=== PATIENT | female | born 1965 | race Caucasian/White ===

== ENCOUNTER → 2019-05-20 | Outpatient (CLI) | payer OTHER ==
--- NOTE | 2019-05-20 09:54 | US ---
EXAMINATION TYPE: US abdomen complete DATE OF EXAM: 05/20/2019 COMPARISON: NONE CLINICAL HISTORY: 53-year-old female R94.5 Abnormal results of liver function studies. TECHNIQUE: Multiple sonographic images of the abdomen are obtained. FINDINGS: EXAM MEASUREMENTS: Liver Length: 18.8 cm Gallbladder Wall: 0.2 cm CBD: 0.5 cm Spleen: 13.2 cm Right Kidney: 9.9 x 4.7 x 4.4 cm Left Kidney: 10.5 x 4.5 x 4.9 cm Pancreas: Obscured by bowel gas Liver: Heterogeneous appearance with increased echotexture and mildly enlarged . No focal lesion see n. Gallbladder: wnl Evidence for sonographic Mcknight's sign: No CBD: wnl Spleen: Borderline enlarged Right Kidney: No hydronephrosis. Left Kidney: No hydronephrosis. Upper IVC: wnl Abd Aorta: wnl IMPRESSION: 1. Hepatomegaly (18.8 cm) with moderate hepatic steatosis. 2. Borderline splenomegaly (13.2 cm). 3. No biliary ductal dilatation.
== END | disposition home or self-care (01) ==
LOC: RADUSWWP 07:04
PROVIDERS: ATTEND Family Medicine
DX: K76.0 Fatty (change of) liver, not elsewhere classified (principal); R16.2 Hepatomegaly with splenomegaly, not elsewhere classified
CPT/HCPCS: 76700

== ENCOUNTER → 2020-04-24 | Outpatient (CLI) | payer OTHER ==
--- NOTE | 2020-04-24 12:49 | US ---
EXAMINATION TYPE: US abdomen complete DATE OF EXAM: 04/24/2020 COMPARISON: 05/20/2019 CLINICAL HISTORY: R10.84 ABD PAIN. Pt states heart burn, bloating, pain EXAM MEASUREMENTS: Liver Length: 17.6 cm Gallbladder Wall: 0.2 cm CBD: 0.4 cm Spleen: 13.3 cm Right Kidney: 9.5 x 4.6 x 4.9 cm Left Kidney: 9.9 x 4.4 x 5.0 cm Pancreas: wnl, tail obscured by overlying bowel gas Liver: Heterogeneous, upper limits of normal for size as visualized on previous Gallbladder: Multiple probable polyps Evidence for sonographic Mcknight's sign: No CBD: wnl Spleen: Enlarged as visualized on previous Right Kidney: wnl, lower pole gassed out Left Kidney: wnl, lower pole gassed out Upper IVC: wnl Abd Aorta: wnl IMPRESSION: 1. Hepatosplenomegaly. 2. Apparent gallbladder polyps.
== END | disposition home or self-care (01) ==
LOC: RADUSWWP 08:22
PROVIDERS: ATTEND Family Medicine
DX: K82.4 Cholesterolosis of gallbladder (principal); R16.2 Hepatomegaly with splenomegaly, not elsewhere classified
CPT/HCPCS: 76700